=== PATIENT | male | born 1965 | race Caucasian/White ===

== ENCOUNTER 2025-08-05 07:16 | Emergency (ER) | payer BC, SELFPAY ==
[2025-08-05 07:40] VITALS: BP 145/93; PULSE 87; RESP 20; TEMP 36.4; O2SAT 94; BMI 42.6
--- NOTE | 2025-08-05 07:45 | CRLHL7_ITS ---
For Patients: As a result of the Century Cures Act, medical imaging exams and procedure reports are released immediately into your electronic medical record. You may view this report before your referring provider. If you have questions, please contact your health care provider. Indication: pain, swelling. No injury Technique: Left knee 3 views Comparison: None Findings: Mild medial compartment narrowing and spurring. Mild patellofemoral spurring. Joint effusion. Incompletely ossified spur at the anterior inferior patella. No acute fracture. Incidental low-grade chondroid lesion within the proximal tibia. Impression: Mild medial and patellofemoral compartment degenerative joint disease. Suprapatellar joint effusion. No acute fracture. Dictated by Mohan Clancy MD @ 08/05/2025 8:49:03 AM (Electronically Signed)
--- NOTE | 2025-08-05 08:01 | ED_ITS ---
HPI - General Adult General Time Seen by Provider: 08:02 Date Seen: 08/05/25 Chief complaint: Lower Extremity Swelling Stated complaint: LT knee pain and swelling Time Seen by Provider: 08/05/25 08:00 Source: patient and RN notes reviewed Mode of arrival: ambulatory Limitations: no limitations History of Present Illness HPI narrative: This 53-year-old male is coming in with acute left knee pain, started about 4 days ago to become severe. He notes symptoms started last Tuesday a week ago. He woke up with pain in the knee joint. By Tuesday it became severe, he is having difficulty bearing weight. He has been taking ibuprofen during the day, states he feels that his taken some of the swelling down. He has used Tylenol to help him sleep at night. He has had gout since about age 41. He has never had it in the knee joint, usually is in his feet. 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 He tries to keep his diet as healthy as possible. He has a remote injury of this knee 25 years ago. He has had no fevers or chills, no night sweats. He feels the knee was more swollen than it is now, feels ibuprofen as helped take the swelling down. He does not have any medication like Indocin or prednisone at home for gout, has not taking anything besides the Tylenol or ibuprofen. There is no acute injury to this knee. He does not feel ill. Related Data Home Medications ?Medication ?Instructions ?Recorded ?Confirmed No Known Home Medications 08/05/2509/29 Allergies Allergy/AdvReac Type Severity Reaction Status Date / Time No Known Drug Allergies Allergy Verified 08/05/25 07:44 Review of Systems Narrative: As per HPI. [facility] Medical History (Updated 08/05/25 @ 09:44 by Do Fisher MD) Gout ?M10.9 - Gout, unspecified (ICD-10) Social History Smoking Status: Never smoker How often do you have a drink containing alcohol: never How often do you have six or more drinks on one occasion: Never AUDIT-C Alcohol total score: 0 Non-prescribed substance use: denies use service: No Exam Const: Vital Signs, click to edit/add: Vital Signs - 24 hr 08/05/25 07:40 Temperature 97.6 F Pulse Rate [Pulse Oximeter] 87 Respiratory Rate 20 Blood Pressure [Ri ght Upper Arm] 145/93 H Pulse Oximetry 94 Oxygen Delivery Me thod Room Air This 59-year-old male is alert, interactive, no apparent distress. Sitting on the edge of the bed in exam room 5. Face is atraumatic, sclera clear, speaking easily in full sentences. Lungs are clear, good air entry, no wheezing or crackles, no tachypnea, no accessory muscle use. CV regular rate and rhythm, no murmur, normal S1-S2. His knee is exquisitely tender around the patella, around the knee joint. There is palpable effusion. There is no significant warmth or erythema at this time, any range of motion is extremely painful for him. Really cannot do any significant clinical examination as he is quite painful. Documenting provider has reviewed patient's vital signs: yes Course Course ED Course: We will x-ray this knee, look at the underlying architecture. Will also do basic labs on this patient. He states he would not be surprised if he has underlying arthritis. Without fever or other vital sign changes, highly doubt that this is anything infectious. I do think gout is a very reasonable explanation but will look at his x-ray images, obtain labs with a CBC, basic metabolic panel, CRP as well as uric acid. Reviewed with patient that the gold standard diagnostic is for fluid analysis from the knee joint. This is not something I do out of the ER. It is not necessary to do so if we have low clinical suspicion of other etiologies. He was concerned as he never has had gout any joint but reviewed with him that it is absolutely possible. Reevaluation(s) Time of Reevaluation #1: 09:31 Reevaluation #1: Have reviewed patient's x-ray of his knee in his labs. His uric acid is high normal but not excessively elevated. We discussed treatment options. We reviewed Indocin versus prednisone, he would prefer the prednisone. Given his severity, do think prednisone is appropriate at this time. We did go over risks benefits and side effects. He is concerned about the diagnosis of gout. Reviewed with him that I really do not feel there is clinical support for a septic joint here. I did offer to talk to Orthopedics and see if somebody could come due an aspiration of his joint. Did discuss with him if they do do this in they agree, they can sometimes inject steroids, cannot say for sure that they would do this. He really does not want to have this done and declines seeing orthopedics. We spent some time discussing signs and symptoms for return. He states what happens if he gets another gouty episode in his knee. Reviewed with him that there is allopurinol that can be a suppressive medicine but it cannot be started in an active gout flare. He would need to follow up in clinic for this, he states he does not have a primary provider. Reviewed with him that he would need to find 1. At this time, I do believe he is stable for discharge. Will give him some pain pills as he is likely going to need them until the prednisone kicks in. If he is not improving with the prednisone, develops fevers, has further concerns, he is aware he is going to need to seek re- evaluation. He requested his medications from [facility]. Give the 20 mg b.i.d. x5 days and oxycodone 5 mg. The smallest number of the oxycodone was 10 tablets, 1 q.6 hours p.r.n. was prescribed. Vital Signs Vital signs: Initial Vital Signs Temperature 97.6 F 08/05/25 07:40 Temperature Source Temporal Artery Scan 08/05/25 07:40 Pulse Rate 87 08/05/25 07:40 Respiratory Rate 20 08/05/25 07:40 Blood Pressure 145/93 H 08/05/25 07:40 Blood Pressure Mean 110 H 08/05/25 07:40 Blood Pressure Position Sitting 08/05/25 07:40 Pulse Oximetry 94 08/05/25 07:40 Oxygen Delivery Method Room Air 08/05/25 07:40 Vital Signs Temperature 97.6 F 08/05/25 07:40 Pulse Rate 87 08/05/25 07:40 Respiratory Rate 20 08/05/25 07:40 Blood Pressure 145/93 H 08/05/25 07:40 Pulse Oximetry 94 08/05/25 07:40 Oxygen Delivery Method Room Air 08/05/25 07:40 Temperature 97.6 F 08/05/25 07:40 Pulse Rate 87 08/05/25 07:40 Respiratory Rate 20 08/05/25 07:40 Blood Pressure 145/93 H 08/05/25 07:40 Pulse Oximetry 94 08/05/25 07:40 Oxygen Delivery Method Room Air 08/05/25 07:40 Medical Decision Making Lab Data Lab results reviewed: Yes I reviewed the patient's lab results Labs: Lab Results 08/05/25 Range/Units 08:15 WBC 9.97 (4.50-11.00) K/uL RBC 5.98 H (4.30-5.90) m/uL Hgb 19.9 H (13.5-17.5) gm/dL Hct 58.2 H (37.0-53.0) % MCV 97 (80-100) fL MCH 33 (26-34) pg MCHC 34 (32-36) gm/dL RDW Coeff of Sandra 12.9 (11.5-15.5) % Plt Count 218 (140-440) K/uL Neut % (Auto) 78.6 H (42.0-72.0) % Lymph % (Auto) 13.6 L (20-44) % [place] % (Auto) 5.6 (0.0-11.0) % Eos % (Auto) 1.6 (0.0-7.0) % Baso % (Auto) 0.5 (0.0-3.0) % Neut # (Auto) 7.80 H (1.7-7.0) K/uL Lymph # (Auto) 1.40 (0.90-2.90) K/uL [place] # (Auto) 0.60 (0.00-0.90) K/UL Eos # (Auto) 0.16 (0.00-0.50) K/uL Baso # (Auto) 0.05 (0.00-0.30) K/uL Abs Immat Gran (auto) 0.01 (0.00-0.30) K/uL Imm/Tot Granulo (auto) 0.1 % Sodium 138 (135-149) mmol/L Potassium 4.0 (3.6-5.1) mmol/L Chloride 97 (96-114) mmol/L Carbon Dioxide 28 (20-32) mmol/L Anion Gap 13 (7-15) mEq/L BUN 10 (7-30) mg/dL Creatinine 0.7 (0.5-1.5) mg/dL Estimated Creat Clear 111.29 Estimated GFR 107 ml/min Glucose 102 (60-115) mg/dL Uric Acid 7.5 (2.2-8.4) mg/dL Calcium 9.2 (8.4-10.6) mg/dL C-Reactive Protein 1.6 H (0.5-1.0) mg/dL Imaging Data XR left knee: Attestation: I have reviewed the pertinent imaging results. Radiologist's impression: Patient: RA REVELES Facility:?[facility] Patient ID:?[id number] Site Patient ID:?[id number]. Site :?[id number] Study:?XRay-Knee Left 3 view-08/05/2025 8:47:12 AM Ordering Physician:Cheryl Anderson Final Report: Indication: pain, swelling. No injury Technique: Left knee 3 views Comparison: None Findings: Mild medial compartment narrowing and spurring. Mild patellofemoral spurring. Joint effusion. Incompletely ossified spur at the anterior inferior patella. No acute fracture. Incidental low-grade chondroid lesion within the proximal tibia. Impression: Mild medial and patellofemoral compartment degenerative joint disease. Suprapatellar joint effusion. No acute fracture. Dictated by Mohan Clancy MD @ 08/05/2025 8:49:03 AM (Electronic Signature) Discharge Plan Discharge Clinical Impression: Gout attack Qualifiers: Gout site: knee Gout etiology: unspecified cause Laterality: left Qualified Code(s): M10.9 - Gout, unspecified Patient Disposition: Home, Self-Care Condition: Stable Instructions: Low Purine Diet (ED), Gout (ED) Additional Instructions: Take 40 mg of prednisone right away today. Then tomorrow start 20 mg twice a day with food, take at 8:00 a.m. and 2:00 p.m.. You will take the prednisone for 5 days. Have written for few tablets of oxycodone for more severe pain, do feel your knee may improve within 24-48 hours on the prednisone. You can use ice packs on the knee, that can help decrease pain and swelling as well. Can increase activity back to normal as you feel better. You cannot drive for 24 hours after taking the oxycodone. Oxycodone can be constipating, may need to use MiraLax and or senna to prevent constipation from this, follow package instructions. If you develop fevers, have increasing knee pain or swelling despite outline treatments, have further concerns, you will need to seek re- evaluation. Prescriptions: No Action No Known Home Medications Follow Up/Referrals: Provider,Not a Local [Primary Care Provider, Family Practice] Stand Alone Forms: [facility] Info Instructions
[2025-08-05 08:26] LABS: Hematocrit* 58.2 % (37.0-53.0); Hemoglobin* 19.9 gm/dL (13.5-17.5); Immature Granulocytes Abs Auto 0.01 K/uL (0.00-0.30); Immature Granulocytes Pct Auto 0.1 %; Mean Corpuscular HGB Conc 34 gm/dL (32-36); Mean Corpuscular Hemoglobin 33 pg (26-34); Mean Corpuscular Volume 97 fL (80-100); RDW Coefficient of Variation % 12.9 % (11.5-15.5); Red Blood Count* 5.98 m/uL (4.30-5.90); White Blood Count* 9.97 K/uL (4.50-11.00)
[2025-08-05 08:27] LABS: Lymphocytes Absolute Auto 1.40 K/uL (0.90-2.90); Slide Review Reflex No
[2025-08-05 08:41] LABS: Chloride* 97 mmol/L (96-114); Potassium* 4.0 mmol/L (3.6-5.1); Sodium* 138 mmol/L (135-149)
--- OUTSIDE RECORDS SUMMARY | 2025-08-05 08:41 | XMS_ITS | Clinical Summary ---
Author Organization [facility] [employer] Address [address] [place] [address] Care Team Providers Care Sports Umpire Name Role Phone Unavailable Primary Care Provider Unavailabl e Source Comments [facility] [employer]non-owned Affiliates and Associated Physician Practices is amultiple site organization consisting of ambulatory clinics and hospital sitesin [place], [place], [place] and [place]. This disclosure is being madepursuant to the Care Everywhere program and may not contain all information available regarding this patient. Last updated 18.[facility] [employer] Allergies No known active allergies Medications * Be aware that medications may not be up to date on this document. Alwaysverify current medications with the patient. No known medications Immunizations Immunization Administration Dates Next Due TDAP (7yrs+) 02/11/2021 Social History Tobacco Use Types Packs/Day Years Used Date Smoking Tobacco: Every Day Smokeless Tobacco: Never Alcohol Use Standard Drinks/Week Comments Yes 0 (1 standard drink = 0.6 oz pur e alcohol) Sex and Gender Information Value Date Recorded Sex Assigned at Not on file Legal Sex Male 1:11 PM CDT Gender Identity Not on file Sexual Orientation Not on file Last Filed Vital Signs Vital Sign Reading Time Taken Comments Blood Pressure 136/78 02/11/2021 1:12 PM CDT Pulse 85 02/11/2021 1:12 PM CDT Temperature - - Respiratory Rate 18 02/11/2021 1:12 PM CDT Oxygen Saturation 97% 02/11/2021 1:12 PM CDT Inhaled Oxygen Concentration - - Weight 102.1 kg (225 lb) 02/11/2021 1:12 PM CDT Height 170.2 cm (5' 7) 02/11/2021 1:12 PM CDT Body Mass Index 35.24 02/11/2021 1:12 PM CDT Plan of Treatment Health Maintenance Due Date Last Done Comments COLOGUARD (AGES 45-75) - COL ON CA SCREENING 1966 COLON MONITORING 1966 COLONOSCOPY - COLON CA SCREENING 1966 CT COLONOGRAPHY - COLON CA SCREENING 1966 Colorectal Cancer Screening 1966 FIT - COLON CA SCREENING 1966 FLEX SIG - COLON CA SCREENING 1966 LIPID TESTING 1966 HIV SCREENING 1981 HEPATITIS C SCREENING 12/21/1984 HEPATITIS B VACCINE (1 of 3 - 19+ 3-dose series) 1985 PNEUMOCOCCAL VACCINE 50+ (1 of 1 - PCV) 2016 ZOSTER VACCINE (1 of 2) 2016 DEPRESSION SCREENING 09/05/2024 COVID-19 VACCINE (1 - 2024-2 6 season) 2025 INFLUENZA VACCINE (#1) 2025 DTAP/TDAP/TD VACCINES (2 - T d or Tdap) 02/11/2031 02/11/2021 HIB VACCINE Aged Out No longer eligi ble based on patient's age to complete this topic HPV VACCINE Aged Out No longer eligi ble based on patient's age to complete this topic MENINGOCOCCAL (Group B) VACC INE SHARED DECISION-MAKING Aged Out No longer eligibl e based on patient's age to complete this topic MENINGOCOCCAL GROUPS A/C/Y/W VACCINE Aged Out No longer eligible b ased on patient's age to complete this topic
[2025-08-05 08:44] LABS: Blood Urea Nitrogen* 10 mg/dL (7-30); Creatinine* 0.7 mg/dL (0.5-1.5); Est. Creatinine Clearance* 111.29; Estimated Glomerular Filt Rate 107 ml/min
[2025-08-05 08:45] LABS: Anion Gap 13 mEq/L (7-15); Calcium* 9.2 mg/dL (8.4-10.6); Carbon Dioxide* 28 mmol/L (20-32); Glucose* 102 mg/dL (60-115)
== END 2025-08-05 09:52 | disposition home or self-care (01) ==
PROVIDERS: Emergency Provider Family Medicine
DX: M10.062 Idiopathic gout, left knee (principal)
CPT/HCPCS: 36415; 73562; 80048; 84550; 85025; 86140; 99283